=== PATIENT | male | born 1945 | race Caucasian/White ===

== ENCOUNTER 2017-02-09 14:11 | Observation (INO) | payer MEDICARE, OTHER ==
[2017-02-09] MEDS ORDERED: ASPIRIN CHEW 81 MG TABLET PO STA (14:37)
[2017-02-09] MEDS ORDERED: ASPIRIN CHEW 81 MG TABLET ONE (14:48)
[2017-02-09] MEDS ORDERED: IPRATROPIUM/ALBUTEROL 3 ML NEB INH PRN (15:58)
[2017-02-09] MEDS ORDERED: SODIUM CHLORIDE FLUSH 0.9% 10 ML SYRINGE IVP PRN (15:58)
[2017-02-09] MEDS ORDERED: AZITHROMYCIN 250 MG TABLET PO STA (15:58)
[2017-02-09] MEDS ORDERED: IPRATROPIUM/ALBUTEROL 3 ML NEB INH STA (15:58)
[2017-02-09] MEDS ORDERED: ACETAMINOPHEN 325 MG TABLET PO PRN (15:58)
[2017-02-09] MEDS ORDERED: ONDANSETRON ODT 4 MG TABLET TL PRN (15:58)
[2017-02-09] MEDS ORDERED: MORPHINE 2 MG/ML SYRINGE IVP PRN (15:58)
[2017-02-09] MEDS ORDERED: NITROGLYCERIN 2% PASTE TOP PRN (16:38)
[2017-02-09] MEDS: SODIUM CHLORIDE FLUSH 0.9% 10 ML SYRINGE IVP SCH (21:30)
[2017-02-10] MEDS: SODIUM CHLORIDE FLUSH 0.9% 10 ML SYRINGE IVP SCH ×2 (06:20→09:49)
[2017-02-10] MEDS ORDERED: PANTOPRAZOLE 40 MG TABLET PO SCH (07:00)
[2017-02-10] MEDS ORDERED: AZITHROMYCIN 250 MG TABLET PO SCH (09:00)
[2017-02-10] MEDS ORDERED: POLYETHYLENE GLYCOL 3350 17 GM PACKET PO SCH (09:00)
[2017-02-10] MEDS ORDERED: methylPREDNISolone SUCCINATE 40 MG/ML VIAL IVP SCH (09:00)
== END 2017-02-10 12:00 | disposition home or self-care (01) ==
DX: R07.89 Other chest pain (principal); J98.4 Other disorders of lung; J30.9 Allergic rhinitis, unspecified; I10 Essential (primary) hypertension; R73.03 Prediabetes; E78.00 Pure hypercholesterolemia, unspecified; N40.0 Benign prostatic hyperplasia without lower urinary tract symptoms; M62.830 Muscle spasm of back; Z87.891 Personal history of nicotine dependence
CPT/HCPCS: 36415; 71020; 80048; 80053; 81003; 82465; 83036; 83690; 83880; 84484; 85025; 85610; 85730; 93005; 93010; 93306; 94640; 96374; 99284; A9270; G0378; J7620

== ENCOUNTER 2017-03-25 09:21 | Outpatient (CLI) | payer MEDICARE, OTHER ==
[2017-03-25] MEDS ORDERED: SIMETHICONE/SOD BICARB/CIT AC 1 EACH PACKET PO ONE (10:39)
[2017-03-25] MEDS ORDERED: BARIUM SULFATE 355 ML BOTTLE PO SCH (11:00)
[2017-03-25] MEDS ORDERED: BARIUM SULFATE 355 ML BOTTLE PO ONE (11:00)
== END 2017-03-25 09:22 | disposition home or self-care (01) ==
DX: K21.9 Gastro-esophageal reflux disease without esophagitis (principal); K22.8 Other specified diseases of esophagus
CPT/HCPCS: 74246; A9270

== ENCOUNTER 2017-12-25 08:16 | Day surgery (SDC) | payer MEDICARE, OTHER ==
[~2017-12-25 08:16] MED LIST: LACTATED RINGERS 1,000 ML IV ONE
[2017-12-25] MEDS ORDERED: fentaNYL 100 MCG/2 ML VIAL IVP ONE (09:10)
[2017-12-25] MEDS ORDERED: MIDAZOLAM 2 MG/2 ML VIAL IVP ONE (09:10)
[2017-12-25 09:54] VITALS: BP 135/83
== END 2017-12-25 08:17 | disposition home or self-care (01) ==
LOC: SDS 08:16
PROVIDERS: ATTEND Internal Medicine
PROC: 0DBN8ZX Excision of Sigmoid Colon, Via Natural or Artificial Opening Endoscopic, Diagnostic (ICD-10-PCS; principal; 2017-12-25 09:30)
DX: Z12.11 Encounter for screening for malignant neoplasm of colon (principal); K57.30 Diverticulosis of large intestine without perforation or abscess without bleeding; K64.8 Other hemorrhoids; K63.5 Polyp of colon
CPT/HCPCS: 45380; J7120

== ENCOUNTER 2018-02-06 13:29 | Outpatient (CLI) | payer MEDICARE, OTHER ==
--- NOTE | 2018-02-06 17:18 | XRAY Report ---
SUPINE ABDOMEN: 02/06/2018 CLINICAL INDICATION: Distention, discomfort. FINDINGS: Supine views of the abdomen demonstrate a normal bowel gas pattern. No abnormal calcifications are appreciated overlying either renal shadow. IMPRESSION: NO EVIDENCE OF BOWEL OBSTRUCTION OR NEPHROLITHIASIS. TD: 02/06/2018 17:17
== END 2018-02-06 13:30 | disposition home or self-care (01) ==
LOC: DI 13:29
PROVIDERS: ATTEND Family Medicine
DX: R14.0 Abdominal distension (gaseous) (principal); R10.32 Left lower quadrant pain
CPT/HCPCS: 74018

== ENCOUNTER 2019-02-07 08:21 | Outpatient (CLI) | payer MEDICARE, OTHER ==
--- NOTE | 2019-02-07 14:41 | Ultrasound Report ---
Reason: UNSP SYMPTOMS AND SIGNS INVOLVING THE GENITOURINAR Procedure Date: 02/07/2019 Accession Number: [id number] / [id number] Procedure: US - Bladder CPT Code: FULL RESULT: EXAM: PELVIS ULTRASOUND, BLADDER EXAM DATE: 02/07/2019 08:43 AM. CLINICAL HISTORY: UNSP SYMPTOMS AND SIGNS INVOLVING THE GENITOURINAR. Urinary frequency. COMPARISON: None. TECHNIQUE: Real-time scanning was performed of the bladder with static images obtained. FINDINGS: Bilateral ureteral jets visualized. No gross bladder abnormality. Prevoid bladder volume: 218 cc. Post void bladder volume: 13 cc. Prostate measures 2.8 x 2.7 x 2.7 cm, volume 10.7 cc. No free fluid demonstrated. IMPRESSION: No elaine abnormality of the bladder demonstrated. RADIA
== END 2019-02-07 08:22 | disposition home or self-care (01) ==
LOC: DI 08:21
PROVIDERS: ATTEND Internal Medicine
DX: R39.9 Unspecified symptoms and signs involving the genitourinary system (principal)
CPT/HCPCS: 76857

== ENCOUNTER 2019-10-01 15:04 | Outpatient (CLI) | payer MEDICARE, OTHER ==
--- NOTE | 2019-10-01 16:26 | CT Report ---
Reason: NECK PAIN Procedure Date: 10/01/2019 Accession Number: [id number] / [id number] Procedure: CT - CERVICAL SPINE WO CPT Code: Final Report FULL RESULT: EXAM: CT CERVICAL SPINE WITHOUT CONTRAST DATE: 10/01/2019 03:23 PM. HISTORY: Neck pain. COMPARISONS: None. TECHNIQUE: Thin-section axial images were acquired of the cervical spine without contrast. Post-processing: Coronal and sagittal reformats. Other: None. In accordance with CT protocol optimization, one or more of the following dose reduction techniques were utilized for this exam: automated exposure control, adjustment of mA and/or KV based on patient size, or use of iterative reconstructive technique. FINDINGS: Alignment: No scoliosis or spondylolisthesis. Bones: No fracture or bone lesion. Interspace Levels/Facets: C1-C2: Articulation anteriorly shows arthritic changes. Lateral articulations are normal. C2-C3: Unremarkable. C3-C4: Disk space height loss, prominent left-sided facet. Mild left foraminal stenosis. Right neural foramen is unremarkable. C4-C5: Slightly prominent facets. No stenosis. C5-C6: Slightly prominent facets. No stenosis. C6-C7: Unremarkable. C7-T1: Unremarkable. Musculature: Normal. No fatty atrophy. Other: The paravertebral and prevertebral soft tissues are unremarkable. The lung apices are clear. IMPRESSION: 1. No fractures. No erosive or destructive changes. No scoliosis or listhesis. 2. C1-C2 articulation anteriorly show some arthritic change. Lateral articulations are unremarkable. 3. C3-C4 shows disk space height loss and mild left foraminal stenosis. Right neural foramina and central canal are normal. 4. C4-C5 shows slightly prominent facets but no stenosis. 5. C5-C6 also shows prominent facets but no stenosis. 6. C6-C7 and C7-T1 are unremarkable. RADIA
== END 2019-10-01 15:05 | disposition home or self-care (01) ==
LOC: DI 15:04
PROVIDERS: ATTEND Orthopaedic Surgery
DX: M50.31 Other cervical disc degeneration, high cervical region (principal); M48.02 Spinal stenosis, cervical region; M47.812 Spondylosis without myelopathy or radiculopathy, cervical region
CPT/HCPCS: 72125

== ENCOUNTER 2020-09-03 10:55 | Emergency (ER) | payer MEDICARE, OTHER ==
--- NOTE | 2020-09-03 12:03 | XRAY Report ---
PROCEDURE: Chest 1 View X-Ray INDICATIONS: Chest pain TECHNIQUE: One view of the chest was acquired. COMPARISON: 02/09/2017 FINDINGS: Surgical changes and devices: None. Lungs and pleura: An incomplete inspiratory result is noted, with low lung volumes and crowding of t he vascular markings. No focal infiltrates are seen. No large pneumothorax or large pleural effusion can be seen. Mediastinum: Mediastinal contours appear normal. Heart size is normal. Bones and chest wall: No suspicious bony lesions. Age-appropriate degenerative changes are seen. Overlying soft tissues appear unremarkable. IMPRESSION: Unremarkable portable chest for age. Reviewed by: Trung Cuevas MD on 09/03/2020 11:01 AM [place] Approved by: Trung Cuevas MD on 09/03/2020 11:01 AM [place] Station ID: [id number]
[2020-09-03 12:08] LABS: BASOPHILS % (AUTO) 0.8 %; EOSINOPHILS # (AUTO) 0.1 10^3/uL (0.0-0.7); EOSINOPHILS % (AUTO) 2.3 %; HGB - HEMOGLOBIN 17.2 g/dL (14.0-18.0); LYMPHOCYTES # (AUTO) 1.3 10^3/uL (1.5-3.5); LYMPHOCYTES % (AUTO) 27.1 %; MEAN CORPUSCULAR HEMOGLOBIN 32.4 pg (27.0-31.0); MEAN CORPUSCULAR VOLUME 95.3 fL (80.0-94.0); MEAN PLATELET VOLUME 10.1 fL (7.4-11.4); MONOCYTES # (AUTO) 0.6 10^3/uL (0.0-1.0); MONOCYTES % (AUTO) 11.7 %; NEUTROPHILS # (AUTO) 2.7 10^3/uL (1.5-6.6); NEUTROPHILS % (AUTO) 57.9 %; PLT - PLATELET COUNT 184 10^3/uL (130-450); RED BLOOD COUNT 5.31 10^6/uL (4.70-6.10); WHITE BLOOD COUNT 4.7 x10^3/uL (4.8-10.8)
--- NOTE | 2020-09-03 12:10 | ED Physician Documentation ---
PD HPI URI - Stated complaint Stated Complaint: CONGESTED/WEAKNESS - Chief complaint Chief Complaint: Cardiac - History obtained from History obtained from: Patient - Additional information Additional information: He has had 2 to 3 weeks of nasal congestion, nighttime drainage, and sinus pressure. Now about a week of worsening substernal soreness, constant and nonradiating. Does not change with exertion. He has a productive cough. No shortness of breath. No fevers. He feels generally fatigued. He had a coronavirus test 8 days ago that was negative per him. No comorbidities, except for prostatic hypertrophy and hypercholesterolemia. Review of Systems Constitutional: reports: Fatigue. denies: Fever, Chills Nose: reports: Rhinorrhea / runny nose, Congestion, Sinus pressure / pain Throat: denies: Sore throat Respiratory: reports: Cough. denies: Dyspnea GI: denies: Abdominal Pain PD PAST MEDICAL HISTORY - Past Medical History Cardiovascular:  Respiratory: None Endocrine/Autoimmune: None GI: None : None HEENT: None Psych: None Musculoskeletal: Chronic back pain Derm: None - Past Surgical History Past Surgical History: Yes General: Colonoscopy Ortho: Spine surgery - Present Medications Home Medications: Ambulatory Orders Medication Instructions Recorded Confirmed Cyclobenzaprine [Flexeril] 10 mg PO DAILY PRN 02/09/17 12/25/17 Tamsulosin HCl 0.4 mg PO DAILY 02/09/17 12/25/17 Amoxicillin 500 mg PO TID #30 capsule 09/03/20 Mometasone Furoate [Nasonex] 1 spray NS BID #1 spray.pump 09/03/20 - Allergies Allergies/Adverse Reactions: Allergies Allergy/AdvReac Type Severity Reaction Status Date / Time No Known Drug Allergies Allergy Verified 09/03/20 11:23 - Social History Does the pt smoke?: No Smoking Status: Never smoker Does the pt drink ETOH?: No Does the pt have substance abuse?: No - Immunizations Immunizations are current?: Yes PD ED PE NORMAL - Vitals Vital signs reviewed: Yes - General General: Alert and oriented X 3, No acute distress - HEENT HEENT: PERRL, EOMI, Ears normal, Other (Mild bilateral maxillary sinus tenderness) - Neck Neck: Supple, no meningeal sign, No bony TTP - Cardiac Cardiac: RRR, No murmur - Respiratory Respiratory: No respiratory distress, Clear bilaterally - Abdomen Abdomen: Normal bowel sounds, Soft, Non tender - Back Back: No CVA TTP, No spinal TTP - Derm Derm: Normal color, Warm and dry - Extremities Extremities: No edema, No calf tenderness / cord - Neuro Neuro: Alert and oriented X 3, Normal speech - Psych Psych: Normal mood, Normal affect Results - Vitals Vitals: Vital Signs - 24 hr 09/03/20 09/03/20 09/03/20 11:10 11:41 12:10 Temperature 36.7 C Heart Rate 53 L 58 L 56 L Respiratory 18 16 16 Rate Blood Pressure 145/65 H 146/77 H 140/79 H O2 Saturation 100 98 98 Oxygen O2 Source Room air - EKG (time done) 1124 Rate: Rate (enter#) (55) Rhythm: NSR [place]: Normal Intervals: Normal AL QRS: Normal Ischemia: Normal ST segments Computer interpretation: Agree with computer - Labs Labs: Laboratory Tests 09/03/20 09/03/20 09/03/20 11:50 11:50 11:50 WBC 4.7 L RBC 5.31 Hgb 17.2 Hct 50.6 MCV 95.3 H MCH 32.4 H MCHC 34.0 RDW 13.0 Plt Count 184 MPV 10.1 Neut # (Auto) 2.7 Lymph # (Auto) 1.3 L [place] # (Auto) 0.6 Eos # (Auto) 0.1 Baso # (Auto) 0.0 Absolute Nucleated RBC 0.00 Nucleated RBC % 0.0 Sodium 139 Potassium 4.3 Chloride 107 Carbon Dioxide 24 Anion Gap 8.0 BUN 25 H Creatinine 1.2 Estimated GFR (MDRD) 59 L Glucose 118 H Calcium 9.0 Total Bilirubin 0.9 AST 25 ALT 30 Alkaline Phosphatase 52 Troponin I High Sens 12.2 Total Protein 6.7 Albumin 3.8 Globulin 2.9 Albumin/Globulin Ratio 1.3 Lipase 37 PD MEDICAL DECISION MAKING - ED course ED course: 74-year-old gentleman presents with substernal chest pain, its been going on constantly for a week and is associated with prominent respiratory symptoms including productive cough and sinus congestion. Seems more viral than anything else. He was offered a coronavirus test and would like to go ahead with it. Noting that he already had a negative test a little over a week ago. His EKG is nonischemic. Single view chest x-ray interpreted contemporaneously by me as normal. Given the time course and atypical symptoms associated with URI, single troponin should be predictive. Departure - Departure Disposition: 01 Home, Self Care Clinical Impression: Bronchitis Sinusitis Qualifiers: Sinusitis location: maxillary Chronicity: acute Recurrence: non-recurrent Qualified Code(s): J01.00 - Acute maxillary sinusitis, unspecified Condition: Good Record reviewed to determine appropriate education?: Yes Instructions: ED Sinusitis Abx Tx Prescriptions: Amoxicillin 500 mg PO TID #30 capsule Mometasone Furoate [Nasonex] 1 spray NS BID #1 spray.pump Comments: Call your doctor to arrange a follow-up appointment, make the next available appointment. In the interim, return anytime if worse or if new symptoms develop.
[2020-09-03 12:24] LABS: ALBUMIN 3.8 g/dL (3.2-5.5); ALBUMIN/GLOBULIN RATIO 1.3 (1.0-2.2); BILIRUBIN,TOTAL 0.9 mg/dL (0.2-1.0); CREATININE 1.2 mg/dL (0.6-1.2); TOTAL PROTEIN 6.7 g/dL (6.7-8.2)
[2020-09-03 12:39] VITALS: BP 134/70
== END 2020-09-03 12:49 | disposition home or self-care (01) ==
LOC: ED 10:55
DX: J40 Bronchitis, not specified as acute or chronic (principal); J01.00 Acute maxillary sinusitis, unspecified; Z20.828 Contact with and (suspected) exposure to other viral communicable diseases
CPT/HCPCS: 36415; 71045; 80053; 83690; 84484; 85025; 93005; 99284; U0004

== ENCOUNTER 2020-10-29 08:57 | Outpatient (CLI) | payer MEDICARE, OTHER ==
--- NOTE | 2020-10-30 16:10 | CT Report ---
PROCEDURE: Sinuses INDICATIONS: CHRONIC SINUS PRESSURE TECHNIQUE: Noncontrast 3.0 mm axial images acquired from the frontal sinuses to the mid-sella, with coronal and sagittal reformats. For radiation dose reduction, the following was used: automated exposure control , adjustment of mA and/or kV according to patient size. COMPARISON: None. FINDINGS: Image quality: Excellent. Maxillary Sinuses: No bony remodeling or destruction. There is mucosal thickening of the floors of t he maxillary sinuses bilaterally. Ethmoid Air Cells: No bony remodeling or destruction. Sinuses are clear. Sphenoid Sinuses: No bony remodeling or destruction. Sinuses are clear. Frontal Sinuses: No bony remodeling or destruction. Sinuses are clear. Ostiomeatal Complexes: The ostiomeatal complexes are narrowed. No Joel cells. Miscellaneous: Visualized intra-orbital contents are normal. No madeleine bullosa. The nasal septum is deviated to the right. IMPRESSION: 1. Mild narrowing of the ostiomeatal complexes with mucosal thickening of the floors of the maxillary sinuses. 2. Otherwise no significant sinus disease. Reviewed by: Max Fitzpatrick on 10/30/2020 4:09 PM PST Approved by: Max Fitzpatrick on 10/30/2020 4:09 PM PST Station ID: [id number]
== END 2020-10-29 08:58 | disposition home or self-care (01) ==
LOC: DI 08:57
PROVIDERS: ATTEND Internal Medicine
DX: J32.8 Other chronic sinusitis (principal)
CPT/HCPCS: 70486

== ENCOUNTER 2021-01-05 09:08 | Outpatient (CLI) | payer MEDICARE, OTHER ==
[2021-01-05 09:51] VITALS: BP 105/62
--- NOTE | 2021-01-05 09:51 | SLEEP CARE CONSULTATION ---
Information from patient questionnaire entered by Pushpa Azevedo. I have reviewed and concur with the information entered by Pushpa Azevedo. This document represents the service I personally performed and the decisions made by me, Kavitha Heaton ARNP. History of Present Illness Service Date and Time: 01/05/2021 0908 Reason for Visit: New patient Chief Complaint: reports: Insomnia, Unrefreshed sleep, Snoring, Excessive daytime sleepiness, Fatigue, Frequent awakenings at night. denies: Observed pauses in breathing Date of Onset: 20 years Usual bedtime: 11-11:30 pm Time it takes to fall asleep: hours without sleep aid Snores at night: Yes (sometimes) Observed to quit breathing while asleep: No Sleeps alone due to snoring: No Number of times waking at night: 2 Reasons for waking at night: reports: Bathroom, Other (dry mouth sometimes). denies: Choking, Snoring, Gasping for air Toss, Turn, or Twitch while sleeping: Yes Recalls having dreams: Yes (rarely) Usually gets out of bed at: 7:30-8:30 am Feels refreshed in the morning: No Morning headache: Yes (most mornings; he takes tylenol and this works well) Sleepy or fatigued during the day: Yes Ever fallen asleep while driving: No Takes day naps: No Dreams during day naps: Yes Prior sleep studies: No Additional HPI information: I had the pleasure of seeing MÓNICA ROSALES today regarding the possibility of him having a sleep disorder. His current complaints are insomnia, frequent night awakenings, unrefreshed sleep, excessive daytime sleepiness and fatigue. Dr. Combs sent him here for a sleep study due to fatigue and his red blood count is too high which could be result of not sleeping well. He also gets daily headaches that he wakes up with. He does not know if her snores or has any pauses in breathing according to his . - Parasomnia Symptoms Ever been unable to move upon waking from sleep: No Walks in sleep: No Talks in sleep: No Ever acted out dreams in sleep: No Ever felt weak in the knees when startled or emotional: No Bothered by creepy, crawly, restless sensations in legs: Yes (almost all the time, even during the day) Problems with memory or concentration: Yes (both) Subjective Initial [place] Sleepiness Scale score: 0 (in 2020) Past Medical History Past Medical History: reports: Arthritis, Fibromyalgia, Other (high cholesterol, muscle cramps in legs). denies: Hypertension, Diabetes (borderline), Arrythmia Social History The patient's occupation is a [employer] WORK[employer]. Patient is and lives in [place]. Have you smoked in the past 12 months: No Cigarettes per day (20/pack): 20 Years of smokin Quit date: 1971 Smoking Pack Years: 5.0 Alcohol use: No Caffeine use: No Family History Family history of sleep disordered breathing: No Allergies and Home Medications Drug allergies reviewed: Yes (NKDA) Home medication list reviewed: Yes Allergy and home medication list: Zolpidem 10 mg Rosuvastatin 5 mg Tamsulosin HCI 4 mg Cyclobenzaprine 10 mg Review of Systems Cardiovascular: denies: high blood pressure Gastrointestinal: reports: heartburn, difficulty swallowing, abdominal pain Urinary: reports: frequency, urgency, impotence Neurological: reports: headaches, gait or balance problems Ear/Nose/Throat: reports: nasal congestion, sinus problems, nose bleeds (rare), dry mouth/throat, injury to nose, tonsillectomy, wisdom teeth removed Endocrine: reports: sluggishness, increased urination, unexplained weakness Musculoskeletal: reports: joint pain, neck pain, back pain, muscle pain or cramping Immunologic: reports: sneezing, itching, allergies to food or environment Physical Exam Blood Pressure: 105/62 Cuff size: wrist Heart Rate: 55 O2 Saturation: 94 Height: 5 ft 10 in Weight: 213 lb Body Mass Index: 30.5 BMI Classification: Obese Neck circumference: 16.3 (inches) Nostrils: patent to airflow Mouth and throat: narrow oropharynx Soft palate: long Hard palate: normal Uvula: normal Uvula visualization: 50% Mallampati Class II Tongue: enlarged in size with teeth thurman on lateral edges Tonsils: absent bilaterally Neck: normal w/o lymphadenopathy or thyromegaly Heart: regular rate and rhythm, murmur Lungs: clear bilaterally Impression and Plan 1. Suspected Obstructive Sleep Apnea-Hypopnea Syndrome, as suggested by a history of irregular snoring, morning headache, unrefreshed sleep, cognitive impairment, and excessive daytime sleepiness. Narrow oropharynx and obesity are common predisposing factors for obstructive sleep apnea-hypopnea syndrome. I recommend proceeding to polysomnography to confirm the diagnosis and to assess severity. If the patient has significant sleep disordered breathing, a manual CPAP titration study will also be performed to find the optimal treatment pressure. I informed the patient of what the sleep studies involve and after some discussion, obtained agreement to proceed. The pathophysiology of obstructive sleep apnea-hypopnea syndrome was discussed with the patient and health risks of cardiovascular and cerebrovascular disease if not treated. Risks of drowsy driving discussed in detail and patient advised to avoid long distance driving and to hand assembler for puller over at the first sign of drowsiness. Patient agreed to plan. * Schedule polysomnography +- manual CPAP titration study and return in 1-2 weeks after the study to discuss result and initiate therapy. * Avoid long distance driving or driving when feeling sleepy. * Avoid alcohol, sedative and muscle relaxant around bedtime. * Attempt to lose weight. * Review instructions provided by trained office staff on how to prepare for the sleep study. * Return for follow-up after sleep study completed. Counseling Topics: Weight loss health impact Visit Type: In Office Time Spent with Patient (minutes): 31 Provider Statement: I spent 100% of the Face to Face Visit with the patient with greater than 50% spent counseling the patient and coordination of care.
== END 2021-01-05 09:09 | disposition home or self-care (01) ==
LOC: SC 09:08
PROVIDERS: ATTEND Nurse Practitioner Family
DX: G47.10 Hypersomnia, unspecified (principal); R51.9 Headache, unspecified; G47.8 Other sleep disorders; R41.89 Other symptoms and signs involving cognitive functions and awareness; R06.83 Snoring; E66.9 Obesity, unspecified; Z68.30 Body mass index [BMI] 30.0-30.9, adult; Z87.891 Personal history of nicotine dependence
CPT/HCPCS: 99203; G0463; 99212

== ENCOUNTER 2021-08-11 22:59 | Outpatient (CLI) | payer MEDICARE, OTHER | END 2021-08-11 23:00 | disposition left against medical advice (07) | LOC: EMS 22:59 | DX: R42 Dizziness and giddiness (principal) ==

== ENCOUNTER 2021-12-20 07:49 | Outpatient (CLI) | payer MEDICARE, OTHER ==
--- NOTE | 2021-12-20 11:24 | Ultrasound Report ---
PROCEDURE: Aorta Screening INDICATIONS: SCREENING FOR CARDIOVASCULAR DISORDERS TECHNIQUE: Real time scanning was performed of the aorta and iliac arteries, with image documentatio n. COMPARISON: None FINDINGS: Aorta: Proximal aortic diameter measures 2.6 x 2.7 cm. Mid-aorta measures 2.2 x 2.5 cm. Distal aor tic diameter is 1.8 x 1.9 cm. Iliac arteries: Right common iliac artery measures 1.2 x 1.2 cm. Left common iliac artery measures 1 x 1.1 cm. Small calcified plaques are seen scattered throughout the abdominal aorta. IMPRESSION: No abdominal aortic aneurysm. Mild atherosclerotic plaques seen scattered in the abdominal aorta. Reviewed by: Blas Clemons MD on 12/20/2021 11:22 AM PST Approved by: Blas Clemons MD on 12/20/2021 11:22 AM PST Station ID: [id number]
== END 2021-12-20 07:50 | disposition home or self-care (01) ==
LOC: DI 07:49
PROVIDERS: ATTEND Internal Medicine
DX: Z13.6 Encounter for screening for cardiovascular disorders (principal); I70.0 Atherosclerosis of aorta

== ENCOUNTER 2022-03-01 14:13 | Outpatient (CLI) | payer MEDICARE, OTHER ==
--- NOTE | 2022-03-01 16:38 | Ultrasound Report ---
PROCEDURE: Ext Limited Non Vascular INDICATIONS: LEFT FOREARM LUMP TECHNIQUE: Real-time scanning was performed of the left forearm, with image documentation. COMPARISON: None. FINDINGS: An ovoid, isoechoic lesion is seen in the area of clinical concern, measuring 4.4 x 1.9 x 3.6 mm, which does not appear to demonstrate internal vascularity. IMPRESSION: Suspect a lipoma as detailed above. Reviewed by: Alvin Fair MD on 03/01/2022 4:36 PM PDT Approved by: Alvin Fair MD on 03/01/2022 4:36 PM PDT Station ID: [id number]
== END 2022-03-01 14:14 | disposition home or self-care (01) ==
LOC: DI 14:13
PROVIDERS: ATTEND Physician Assistant
DX: R22.32 Localized swelling, mass and lump, left upper limb (principal); M79.632 Pain in left forearm

== ENCOUNTER 2023-09-04 10:52 | Emergency (ER) | payer MEDICARE, OTHER ==
[2023-09-04 11:17] VITALS: BP 138/74; O2SAT 98
--- NOTE | 2023-09-04 11:59 | ED Physician Documentation ---
PD HPI UPPER EXT INJURY - Stated complaint Stated Complaint: LT THUMB LAC - Chief complaint Chief Complaint: Laceration - History obtained from History obtained from: Patient - History of Present Illness Location: Left (77-year-old gentleman who is right-handed and up-to-date on tetanus cut his left thumb while opening something with a knife just prior to arrival. No other injuries.) PD PAST MEDICAL HISTORY - Past Medical History Cardiovascular:  Respiratory: None Endocrine/Autoimmune: None GI: None : None HEENT: None Psych: None Musculoskeletal: Chronic back pain Derm: None - Past Surgical History Past Surgical History: Yes General: Colonoscopy Ortho: Spine surgery - Present Medications Home Medications: Ambulatory Orders Medication Instructions Recorded Confirmed Cyclobenzaprine [Flexeril] 10 mg PO DAILY PRN 02/09/17 12/25/17 Tamsulosin HCl 0.4 mg PO DAILY 02/09/17 12/25/17 Amoxicillin 500 mg PO TID #30 capsule 09/03/20 Mometasone Furoate [Nasonex] 1 spray NS BID #1 spray.pump 09/03/20 - Allergies Allergies/Adverse Reactions: Allergies Allergy/AdvReac Type Severity Reaction Status Date / Time No Known Drug Allergies Allergy Verified 09/03/20 11:23 - Social History Does the pt smoke?: No Smoking Status: Never smoker Does the pt drink ETOH?: No Does the pt have substance abuse?: No - Immunizations Immunizations are current?: Yes PD ED PE NORMAL - Vitals Vital signs reviewed: Yes - General General: Alert and oriented X 3, No acute distress - Extremities Extremities: Other (On the left thumb, palmar/radial side there is a 3 cm flap laceration that is moderately deep but not going down to tendon or bone. He has normal sensation at the tip as well as cap refill. Normal strength in all 4 directions.) - Neuro Neuro: Alert and oriented X 3, Normal speech Results - Vitals Vitals: Vital Signs - 24 hr 09/04/23 11:09 Temperature 36.5 C Heart Rate 65 Respiratory 18 Rate Blood Pressure 138/74 H O2 Saturation 98 Oxygen O2 Source Room air Procedures - Laceration (location) L thumb Length in cm: 3 Wound type: Curved Neurovascular status: Sensory intact, Motor intact, Vascular intact Anesthesia: Lidocaine 1% with epi Wound preparation: Irrigated copiously NS Skin layer closure: Nylon, Interrupted, Size #-0 - enter number (4-0), Sutures - enter # (8) Other: Patient tolerated well, No complications, Tetanus UTD Departure - Departure Disposition: 01 Home, Self Care Clinical Impression: Laceration Condition: Good Record reviewed to determine appropriate education?: Yes Instructions: ED Laceration Hand Comments: Come back for any signs of infection which would include: Redness, swelling, drainage, increased pain, or fevers. You can wash it soap and water. Keep it covered and moist with bacitracin ointment which is available over the counter; avoid neosporin. Follow-up with your physician in 14 days for suture removal.
== END 2023-09-04 12:39 | disposition home or self-care (01) ==
LOC: ED 10:52
DX: S61.012A Laceration without foreign body of left thumb without damage to nail, initial encounter (principal); W26.0XXA Contact with knife, initial encounter; Y93.89 Activity, other specified
CPT/HCPCS: 12002; 99281

== ENCOUNTER 2023-10-29 13:44 | Outpatient (CLI) | payer MEDICARE, OTHER ==
--- NOTE | 2023-10-29 13:57 | XRAY Report ---
PROCEDURE: Chest 2 View X-Ray INDICATIONS: WHEEZING TECHNIQUE: 2 views of the chest were acquired. COMPARISON: Chest x-ray 09/03/2020 FINDINGS: Surgical changes and devices: None. Lungs and pleura: Scattered linear bibasilar opacities are present as well as blunting of the costop hrenic angles. Mediastinum: Mediastinal contours appear normal. Heart size is minimally prominent. Bones and chest wall: No suspicious bony lesions. Overlying soft tissues appear unremarkable. IMPRESSION: Linear bibasilar opacities which may represent atelectasis versus developing airspace disease. Trace blunting of the costophrenic angles are present which may reveal scarring versus trace effusions. Reviewed by: Barbara Morales MD on 10/29/2023 1:56 PM PST Approved by: Barbara Morales MD on 10/29/2023 1:56 PM [facility] Station ID: [id number]
== END 2023-10-29 13:45 | disposition home or self-care (01) ==
LOC: DI 13:44
PROVIDERS: ATTEND Internal Medicine
DX: R06.2 Wheezing (principal)